=== PATIENT | male | born 1940 | race Native Hawaiian/Other Pacific Islander ===

== ENCOUNTER 2018-03-03 06:24 | Inpatient (IN) | payer MEDICARE ==
[2018-03-03 06:29] VITALS: BMI 23.6
--- NOTE | 2018-03-03 06:41 | C.PDOC ---
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 Went to him, and had a hard time waking him up. When medics arrived, pt was confused. No trauma. Slow to re spond. Staring into space, but easily redirected/. Pt has a history of a stroke/bleed 2 years ago, with some right sided weakness. Time Seen by Provider: 03/03/18 06:38 History Per: Family History/Exam Limitations: no limitations Onset/Duration Of Symptoms: Hrs Current Symptoms Are (Timing): Still Present Severity: Severe Pain Scale Rating Of: 6 Reports Recently: Seen In ED, Treated By A Physician, Hospitalized Recent travel outside of the [place]: No Additional History Per: Family Past Medical History Reviewed: Historical Data, Nursing Documentation, Vital Signs - [facility] Procedures COLONOSCOPY (08/10/01) ESOPHAGOGASTRODUODENOSCOPY [EGD] W/CLOSED BIOPSY (08/10/01) Family History: States: No Known Family Hx Review Of Systems Review Of Systems: ROS cannot be obtained secondary to pt's inabilty to answer questions. (confused) Physical Exam - Physical Exam Appears: Non-toxic Skin: Warm, Dry Head: Normacephalic Eye(s): bilateral: Normal Inspection Oral Mucosa: Moist Tongue: Normal Appearing Neck: Trachea Midline, Supple Chest: Symmetrical Cardiovascular: Rhythm Regular Respiratory: No Rales, No Rhonchi, No Wheezing Gastrointestinal/Abdominal: Soft, No Tenderness, No Distention Back: Normal Inspection Extremity: Normal ROM, No Tenderness Extremity: Bilateral: Atraumatic, Normal Color And Temperature, Normal ROM Pulses: Left Dorsalis Pedis: Normal, Right Dorsalis Pedis: Normal Neurological/Psych: Slow To Respond With Command Gait: Unable To Assess ED Course And Treatment - Laboratory Results Result Diagrams: 03/03/18 06:39 03/03/18 06:39 Critical Care Time - Critical Care Note Total Time (in mins): 30 Documented critical care: time excludes all time spent performing seperately billable procedures. NIHSS Stroke Scale - Date/Time Evaluation Performed Date Performed: 03/03/18 Time Performed: 06:25 When Was NIHSS Performed: Baseline - How Severe is the Stroke Level of Consciousness: 0=Alert LOC to Questions: 0=Both comments correct LOC to commands: 0=Obeys both correctly Best Gaze: 0=Normal Visual: 0=No visual loss Facial: 0=Normal Motor Arm - Left: 0=No drift Motor Arm - Right: 0=No drift Motor Leg - Left: 0=No drift Motor Leg - Right: 1=Drift before 5 sec Limb Ataxia: 0=Absent Sensory: 0=Normal Best Language: 0=No aphasia Dysarthia: 1=Mild to moderate slurring Extinction & Inattention (Neglect): 0=Normal, no object Score: 2 Disposition Counseled Patient/Family Regarding: Studies Performed, Diagnosis - Disposition Disposition Time: 06:38 Condition: GUARDED - Clinical Impression Clinical Impression: Change in mental status Physician Patient Turnover Patient Signed Over To: Soledad Galindo Handoff Comments: pending labs, ct/cta results and disposition
[2018-03-03 06:43] LABS: BASO # 0.1 K/uL (0.0-0.2); BASO % 1.3 % (0.0-2.0); EOS # 0.3 K/uL (0.0-0.7); EOS % 5.2 % (0.0-4.0); HEMOGLOBIN 13.9 g/dL (12.0-18.0); LYMPH % 33.2 % (20.0-40.0); MEAN CELL VOLUME 90.3 fL (80.0-94.0); MEAN CORPUSCULAR HEMOGLOBIN 30.8 pg (27.0-31.0); MEAN CORPUSCULAR HGB CONC 34.1 g/dL (33.0-37.0); MEAN PLATELET VOLUME 7.9 fL (7.2-11.7); MONO # 0.8 K/uL (0.0-0.8); MONO % 13.1 % (0.0-10.0); NEUT # 2.9 K/uL (1.8-7.0); NEUT % 47.2 % (50.0-75.0); NRBC % 0.1 % (0.0-2.0); RBC 4.51 Mil/uL (4.40-5.90); WHITE BLOOD COUNT 6.1 K/uL (4.8-10.8)
[2018-03-03] MEDS ORDERED: Iodixanol 320 MG/ML 100 ML BOTTLE IV ONE (06:47)
[2018-03-03 06:53] LABS: INR 1.1; PROTHROMBIN TIME 12.2 SECONDS (9.7-12.2)
[2018-03-03 06:57] LABS: ALB/GLOB RATIO 1.3 (1.0-2.1); ALBUMIN 4.4 g/dL (3.5-5.0)
[2018-03-03 07:11] LABS: TROPONIN I 0.016 ng/mL (0.00-0.120)
[2018-03-03 08:10] LABS: URINE BILIRUBIN NEGATIVE (NEGATIVE); URINE BLOOD 1+ (NEGATIVE); URINE CLARITY Clear (Clear); URINE COLOR Straw (YELLOW); URINE GLUCOSE (UA) 1+ mg/dL (Normal); URINE LEUKOCYTE ESTERASE NEG Leu/uL (Negative); URINE PROTEIN 2+ mg/dL (NEGATIVE); URINE UROBILINOGEN NORMAL mg/dL (0.2-1.0)
[2018-03-03] MEDS ORDERED: Labetalol 25mg/5ml Syringe IVP STA (08:56)
--- NOTE | 2018-03-03 08:56 | RAD ---
Date of service: 03/03/2018 HISTORY: Code Stroke COMPARISON: No prior. FINDINGS: LUNGS: Diffuse increased interstitial lung markings. Right hilar prominence. Patchy consolidative opacities in the right infrahilar region and left lung base. Upper lobe granulomatous changes. PLEURA: No significant pleural effusion identified, no pneumothorax apparent. CARDIOVASCULAR: Aortic atherosclerotic calcification present. Cardiomegaly. Enlarged ectatic aorta. OSSEOUS STRUCTURES: No significant abnormalities. VISUALIZED UPPER ABDOMEN: Normal. OTHER FINDINGS: None. IMPRESSION: Diffuse increased interstitial lung markings. Right hilar prominence. Patchy consolidative opacities in the right infrahilar region and left lung base. Upper lobe granulomatous changes. Cardiomegaly.
[2018-03-03] MEDS ORDERED: Labetalol 5mg/ml (4ml) ONE (09:00)
--- NOTE | 2018-03-03 09:09 | CP.PCM.CON ---
<Nay Vyas - Last Filed: 03/03/18 17:50> History of Present Illness - History of Present Illness History of Present Illness: Neurology Consult Note This is a 77 year old [place] male with PMHx of Hypertension, Type 2 DM (on oral medications), Hyperlipidemia, Hx of Ischemic CVA, Hx of Hemorrhagic CVA who was referred to our service by ED physician, Dr. Stubbs, after the patient presented to the ED for slurred speech and AMS. History retrieved from the patient's who was present at bedside. As per the , this morning around 5 am she heard him moaning and grunting in the living room (where the patient sleeps). She reports he was moving his jaw in weird manner and his speech was garbled. At the time she called EMS, she reported he had generalized weakness and assisted into the ambulance. She reports the patient has been confused and repeating himself since this morning. Within an hour of examining the patient, the patient reported he is having bilateral blurry vision worse on the right. Up until this point patient had normal vision (does not wear glasses). He denied any black spots, white spots, or the sensation of a black curtain falling down. PMHx: As noted above PSHx: Denied Meds: As per MAR All: NKDA SHx: Denied tobacco, alcohol, or illicit drug use FHx: Unremarkable Review of Systems - Review of Systems Systems not reviewed;Unavailable: Altered Mental Status - Constitutional Constitutional: absent: Fatigue, Fever, Lethargy, Weight Gain, Weight Loss - EENT Eyes: Blurred Vision, Change in Vision, Loss of Peripheral Vision, Tunnel Vision. absent: Diplopia, Exophthalmos, Floaters, Pain, Photophobia, Requires Corrective Lenses, Sees Flashes, Spots in Vision Nose/Mouth/Throat: absent: Nasal Congestion, Nasal Discharge, Dry Mouth, Dysphagia, Sore Throat - Cardiovascular Cardiovascular: absent: Chest Pain, Dyspnea, Edema, Pain Radiating to Arm/Neck/Jaw - Respiratory Respiratory: absent: Cough, Dyspnea on Exertion, Wheezing - Gastrointestinal Gastrointestinal: absent: Abdominal Pain, Nausea, Vomiting - Genitourinary Genitourinary: absent: Hematuria, Urinary Incontinence - Musculoskeletal Musculoskeletal: Muscle Weakness. absent: Abnormal Gait, Back Pain, Myalgias, Numbness - Neurological Neurological: Abnormal Speech, Confusion, Dizziness, Weakness. absent: Numbness, Headaches, Tingling, Tremor, Vertigo - Psychiatric Psychiatric: absent: Anxiety, Depression - Endocrine Endocrine: absent: Polydipsia, Polyphagia, Polyuria - Hematologic/Lymphatic Hematologic: absent: Easy Bleeding, Easy Bruising Past Patient History - Past Social History Smoking Status: Never Smoked - CARDIAC Hx Hypertension: Yes - NEUROLOGICAL HX Cerebrovascular Accident: Yes (Hx of stroke 2 yrs ago) - ENDOCRINE/METABOLIC Hx Endocrine Disorders: Yes Hx Diabetes Mellitus Type 2: Yes - PSYCHIATRIC Hx Substance Use: No - SURGICAL HISTORY Hx Surgeries: No - ANESTHESIA Hx Anesthesia: No Meds Allergies/Adverse Reactions: Allergies Allergy/AdvReac Type Severity Reaction Status Date / Time No Known Allergies Allergy Verified 03/03/18 06:40 Physical Exam - Constitutional Appears: Confused - Head Exam Head Exam: ATRAUMATIC, NORMAL INSPECTION, NORMOCEPHALIC - Eye Exam Eye Exam: PERRL - ENT Exam ENT Exam: Mucous Membranes Dry - Neck Exam Neck exam: Positive for: Normal Inspection - Respiratory Exam Respiratory Exam: Clear to Auscultation Bilateral - Cardiovascular Exam Cardiovascular Exam: +S1, +S2. absent: Diastolic murmur, Systolic Murmur - GI/Abdominal Exam GI & Abdominal Exam: Normal Bowel Sounds, Soft. absent: Distended, Tenderness - Extremities Exam Extremities exam: Positive for: normal inspection, pedal pulses present. Negative for: pedal edema, tenderness - Back Exam Back exam: NORMAL INSPECTION - Neurological Exam Neurological exam: Altered, CN II-XII Intact, Reflexes Normal - Expanded Neurological Exam Expanded Patient oriented to: person, time Speech: Fluid Speech Cerebellar Function: Finger to Nose: Abnormal Left, Abnormal Right, Heel to Hernandez: Abnormal Right Upper motor neuron: Pronator Drift: Normal Sensory exam: Lower Extremity Light Touch: Normal, Upper Extremity Light Touch: Normal Neuro motor strength exam: Left Upper Extremity: 5, Right Upper Extremity: 5, Left Lower Extremity: 5, Right Lower Extremity: 5 DTR: Bicep Left: 2+, Bicep Right: 2+, Patellar Left: 2+, Patellar Right: 2+ - Skin Skin Exam: Dry, Intact, Normal Color, Warm Results - Vital Signs Recent Vital Signs: Last Vital Signs Temp 98.3 F 03/03/18 06:28 Pulse 69 03/03/18 09:01 Resp 18 03/03/18 09:01 BP 170/79 H 03/03/18 09:01 Pulse Ox 98 03/03/18 09:01 - Labs Result Diagrams: 03/03/18 06:39 03/03/18 06:39 Labs: Laboratory Results - last 24 hr 03/03/18 03/03/18 03/03/18 06:27 06:39 06:39 WBC 6.1 RBC 4.51 Hgb 13.9 Hct 40.7 MCV 90.3 MCH 30.8 MCHC 34.1 RDW 14.0 Plt Count 161 MPV 7.9 Neut % (Auto) 47.2 L Lymph % (Auto) 33.2 [place] % (Auto) 13.1 H Eos % (Auto) 5.2 H Baso % (Auto) 1.3 Neut # (Auto) 2.9 Lymph # (Auto) 2.0 [place] # (Auto) 0.8 Eos # (Auto) 0.3 Baso # (Auto) 0.1 PT 12.2 INR 1.1 APTT 33 Sodium Potassium Chloride Carbon Dioxide Anion Gap BUN Creatinine Est GFR ( Amer) Est GFR (Non-Af Amer) POC Glucose (mg/dL) 171 H Random Glucose Hemoglobin A1c Calcium Total Bilirubin AST ALT Alkaline Phosphatase Troponin I Total Protein Albumin Globulin Albumin/Globulin Ratio Triglycerides Cholesterol LDL Cholesterol Direct HDL Cholesterol Urine Color Urine Clarity Urine pH Ur Specific [place] Urine Protein Urine Glucose (UA) Urine Ketones Urine Blood Urine Nitrate Urine Bilirubin Urine Urobilinogen Ur Leukocyte Esterase Urine WBC (Auto) Urine RBC (Auto) B-Hydroxybutyrate Blood Type Antibody Screen 03/03/18 03/03/18 03/03/18 06:39 06:39 06:39 WBC RBC Hgb Hct MCV MCH MCHC RDW Plt Count MPV Neut % (Auto) Lymph % (Auto) [place] % (Auto) Eos % (Auto) Baso % (Auto) Neut # (Auto) Lymph # (Auto) [place] # (Auto) Eos # (Auto) Baso # (Auto) PT INR APTT Sodium 143 Potassium 3.2 L Chloride 107 Carbon Dioxide 26 Anion Gap 14 BUN 30 H Creatinine 1.4 Est GFR ( Amer) 60 Est GFR (Non-Af Amer) 49 POC Glucose (mg/dL) Random Glucose 176 H Hemoglobin A1c 7.8 H Calcium 9.0 Total Bilirubin 0.8 AST 32 ALT 26 Alkaline Phosphatase 70 Troponin I 0.0160 Total Protein 7.8 Albumin 4.4 Globulin 3.4 Albumin/Globulin Ratio 1.3 Triglycerides 120 Cholesterol 126 LDL Cholesterol Direct 72 HDL Cholesterol 41 Urine Color Urine Clarity Urine pH Ur Specific [place] Urine Protein Urine Glucose (UA) Urine Ketones Urine Blood Urine Nitrate Urine Bilirubin Urine Urobilinogen Ur Leukocyte Esterase Urine WBC (Auto) Urine RBC (Auto) B-Hydroxybutyrate Blood Type B POSITIVE Antibody Screen Negative 03/03/18 03/03/18 03/03/18 07:06 07:12 07:38 WBC RBC Hgb Hct MCV MCH MCHC RDW Plt Count MPV Neut % (Auto) Lymph % (Auto) [place] % (Auto) Eos % (Auto) Baso % (Auto) Neut # (Auto) Lymph # (Auto) [place] # (Auto) Eos # (Auto) Baso # (Auto) PT INR APTT Sodium Potassium Chloride Carbon Dioxide Anion Gap BUN Creatinine Est GFR ( Amer) Est GFR (Non-Af Amer) POC Glucose (mg/dL) 165 H Random Glucose Hemoglobin A1c Calcium Total Bilirubin AST ALT Alkaline Phosphatase Troponin I Total Protein Albumin Globulin Albumin/Globulin Ratio Triglycerides Cholesterol LDL Cholesterol Direct HDL Cholesterol Urine Color Straw Urine Clarity Clear Urine pH 6.0 Ur Specific [place] 1.036 H Urine Protein 2+ H Urine Glucose (UA) 1+ H Urine Ketones Negative Urine Blood 1+ H Urine Nitrate Negative Urine Bilirubin Negative Urine Urobilinogen Normal Ur Leukocyte Esterase Neg Urine WBC (Auto) 1 Urine RBC (Auto) 6 H B-Hydroxybutyrate 0.09 Blood Type Antibody Screen Assessment & Plan - Assessment and Plan (Free Text) Plan: 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 Chronic bifrontal infarcts with mild chronic white matter and basal nuclei ischemic changes. Note that the possibility of a small hyperacute infarct not excluded. - Head/ Neck CTA: Minor atherosclerotic plaque both carotid bifurcations with no evidence of occlusion or significant stenosis. Mild to moderate atherosclerotic plaque changes both carotid siphons resulting in moderate stenosis bilaterally. 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 - Brain MRI without contrast: ordered, pending results Management: - Telemetry - Brain MRI without contrast, EEG, ECHO with bubble study - ASA, Plavix, high dose statin - NS @ 100cc/hr - Allow permissive hypertension, only treat BP that is higher than 220/110mmhg until 24 hours after admission - PT/OT, Case Management Case discussed with Nay Peña DO, PGY2 NIHSS Stroke Scale - Date/Time Evaluation Performed Date Performed: 03/03/18 Time Performed: 07:23 - How Severe is the Stoke Level of Consciousness: 0=Alert LOC to Questions: 1=One correct LOC to commands: 1=Obeys one correctly Best Gaze: 0=Normal Visual: 1=Partial hemianopia Facial: 0=Normal Motor Arm - Left: 0=No drift Motor Arm - Right: 0=No drift Motor Leg - Left: 1=Drift before 5 sec Motor Leg - Right: 0=No drift Limb Ataxia: 0=Absent Sensory: 0=Normal Best Language: 0=No aphasia Dysarthia: 1=Mild to moderate slurring Extinction & Inattention (Neglect): 0=Normal, no object Score: 5 <Qamar Hernandez - Last Filed: 03/03/18 18:48> Meds - Medications Medications: Current Medications Allopurinol (Zyloprim) 100 mg PO DAILY [facility] Aspirin (Aspirin Chewable) 81 mg PO DAILY [facility] Clopidogrel Bisulfate (Plavix) 75 mg PO DAILY [facility] Enoxaparin Sodium (Lovenox) 40 mg SC DAILY [facility] Famotidine (Pepcid) 20 mg PO DAILY [facility] Glipizide (Glucotrol Xl) 10 mg PO DAILY [facility] Sodium Chloride (Sodium Chloride 0.9%) 1,000 mls @ 100 mls/hr IV .Q10H [facility] Stop: 03/04/18 12:14 Last Admin: 03/03/18 17:09 Dose: 100 mls/hr Pioglitazone HCl (Actos) 15 mg PO DAILY [facility] Rosuvastatin Calcium (Crestor) 10 mg PO HS [facility] Results - Vital Signs Recent Vital Signs: Last Vital Signs Temp 98.0 F 03/03/18 15:00 Pulse 59 L 03/03/18 15:00 Resp 20 03/03/18 15:00 BP 197/66 H 03/03/18 15:00 Pulse Ox 98 03/03/18 15:00 - Labs Result Diagrams: 03/03/18 06:39 03/03/18 06:39 Labs: Laboratory Results - last 24 hr 03/03/18 03/03/18 03/03/18 06:27 06:39 06:39 WBC 6.1 RBC 4.51 Hgb 13.9 Hct 40.7 MCV 90.3 MCH 30.8 MCHC 34.1 RDW 14.0 Plt Count 161 MPV 7.9 Neut % (Auto) 47.2 L Lymph % (Auto) 33.2 [place] % (Auto) 13.1 H Eos % (Auto) 5.2 H Baso % (Auto) 1.3 Neut # (Auto) 2.9 Lymph # (Auto) 2.0 [place] # (Auto) 0.8 Eos # (Auto) 0.3 Baso # (Auto) 0.1 PT 12.2 INR 1.1 APTT 33 Sodium Potassium Chloride Carbon Dioxide Anion Gap BUN Creatinine Est GFR ( Amer) Est GFR (Non-Af Amer) POC Glucose (mg/dL) 171 H Random Glucose Hemoglobin A1c Calcium Total Bilirubin AST ALT Alkaline Phosphatase Troponin I Total Protein Albumin Globulin Albumin/Globulin Ratio Triglycerides Cholesterol LDL Cholesterol Direct HDL Cholesterol 25-OH Vitamin D Total Folate Homocysteine Urine Color Urine Clarity Urine pH Ur Specific [place] Urine Protein Urine Glucose (UA) Urine Ketones Urine Blood Urine Nitrate Urine Bilirubin Urine Urobilinogen Ur Leukocyte Esterase Urine WBC (Auto) Urine RBC (Auto) B-Hydroxybutyrate Blood Type Antibody Screen 03/03/18 03/03/18 03/03/18 06:39 06:39 06:39 WBC RBC Hgb Hct MCV MCH MCHC RDW Plt Count MPV Neut % (Auto) Lymph % (Auto) [place] % (Auto) Eos % (Auto) Baso % (Auto) Neut # (Auto) Lymph # (Auto) [place] # (Auto) Eos # (Auto) Baso # (Auto) PT INR APTT Sodium 143 Potassium 3.2 L Chloride 107 Carbon Dioxide 26 Anion Gap 14 BUN 30 H Creatinine 1.4 Est GFR ( Amer) 60 Est GFR (Non-Af Amer) 49 POC Glucose (mg/dL) Random Glucose 176 H Hemoglobin A1c 7.8 H Calcium 9.0 Total Bilirubin 0.8 AST 32 ALT 26 Alkaline Phosphatase 70 Troponin I 0.0160 Total Protein 7.8 Albumin 4.4 Globulin 3.4 Albumin/Globulin Ratio 1.3 Triglycerides 120 Cholesterol 126 LDL Cholesterol Direct 72 HDL Cholesterol 41 25-OH Vitamin D Total Folate Homocysteine Urine Color Urine Clarity Urine pH Ur Specific [place] Urine Protein Urine Glucose (UA) Urine Ketones Urine Blood Urine Nitrate Urine Bilirubin Urine Urobilinogen Ur Leukocyte Esterase Urine WBC (Auto) Urine RBC (Auto) B-Hydroxybutyrate Blood Type B POSITIVE Antibody Screen Negative 03/03/18 03/03/18 03/03/18 07:06 07:12 07:38 WBC RBC Hgb Hct MCV MCH MCHC RDW Plt Count MPV Neut % (Auto) Lymph % (Auto) [place] % (Auto) Eos % (Auto) Baso % (Auto) Neut # (Auto) Lymph # (Auto) [place] # (Auto) Eos # (Auto) Baso # (Auto) PT INR APTT Sodium Potassium Chloride Carbon Dioxide Anion Gap BUN Creatinine Est GFR ( Amer) Est GFR (Non-Af Amer) POC Glucose (mg/dL) 165 H Random Glucose Hemoglobin A1c Calcium Total Bilirubin AST ALT Alkaline Phosphatase Troponin I Total Protein Albumin Globulin Albumin/Globulin Ratio Triglycerides Cholesterol LDL Cholesterol Direct HDL Cholesterol 25-OH Vitamin D Total Folate Homocysteine Urine Color Straw Urine Clarity Clear Urine pH 6.0 Ur Specific [place] 1.036 H Urine Protein 2+ H Urine Glucose (UA) 1+ H Urine Ketones Negative Urine Blood 1+ H Urine Nitrate Negative Urine Bilirubin Negative Urine Urobilinogen Normal Ur Leukocyte Esterase Neg Urine WBC (Auto) 1 Urine RBC (Auto) 6 H B-Hydroxybutyrate 0.09 Blood Type Antibody Screen 03/03/18 03/03/18 03/03/18 14:04 14:04 16:30 WBC RBC Hgb Hct MCV MCH MCHC RDW Plt Count MPV Neut % (Auto) Lymph % (Auto) [place] % (Auto) Eos % (Auto) Baso % (Auto) Neut # (Auto) Lymph # (Auto) [place] # (Auto) Eos # (Auto) Baso # (Auto) PT INR APTT Sodium Potassium Chloride Carbon Dioxide Anion Gap BUN Creatinine Est GFR ( Amer) Est GFR (Non-Af Amer) POC Glucose (mg/dL) 191 H Random Glucose Hemoglobin A1c Calcium Total Bilirubin AST ALT Alkaline Phosphatase Troponin I Total Protein Albumin Globulin Albumin/Globulin Ratio Triglycerides Cholesterol LDL Cholesterol Direct HDL Cholesterol 25-OH Vitamin D Total 35.4 Folate > 20.0 Homocysteine 8.8 Urine Color Urine Clarity Urine pH Ur Specific [place] Urine Protein Urine Glucose (UA) Urine Ketones Urine Blood Urine Nitrate Urine Bilirubin Urine Urobilinogen Ur Leukocyte Esterase Urine WBC (Auto) Urine RBC (Auto) B-Hydroxybutyrate Blood Type Antibody Screen Attending/Attestation - Attestation I have personally seen and examined this patient.: Yes I have fully participated in the care of the patient.: Yes I have reviewed all pertinent clinical information: Yes Notes (Text): 03/03/18 18:48 I agree with the assessment and plan. 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 We will continue work up and treatment as outlined: - Telemetry - Brain MRI without contrast, EEG, ECHO with bubble study - ASA, Plavix, high dose statin - NS @ 100cc/hr - Allow permissive hypertension, only treat BP that is higher than 220/110mmhg until 24 hours after admission - PT/OT, Case Management
--- NOTE | 2018-03-03 10:00 | CT ---
Date of service: 03/03/2018 PROCEDURE: CT HEAD WITHOUT CONTRAST. HISTORY: Code Stroke COMPARISON: Correlation made with concurrent CTA brain TECHNIQUE: Axial computed tomography images were obtained through the head/brain without intravenous contrast. Radiation dose: Total exam DLP = 1233.69 mGy-cm. This CT exam was performed using one or more of the following dose reduction techniques: Automated exposure control, adjustment of the mA and/or kV according to patient size, and/or use of iterative reconstruction technique. FINDINGS: HEMORRHAGE: No acute parenchymal, subarachnoid or extra-axial hemorrhage. BRAIN: Old left anterior superior frontal and right mid to superior mid frontal chronic infarct changes. In addition, there are mild diffuse/confluent chronic periventricular white matter ischemic changes some extension into the white matter tracts of both basal nuclei. Note that the possibility of a small hyperacute infarct not excluded. Moderate generalized volume loss. Minor vascular calcifications both carotid siphons VENTRICLES: No obstructive hydrocephalus. CALVARIUM: Calvarium intact PARANASAL SINUSES: Unremarkable as visualized. No sig minor mucosal thickening left maxillary sinus with minimal mucosal thickening few ethmoid air cells spacing superiorly into the inferior aspect of the frontal sinus. The. MASTOID AIR CELLS: Unremarkable as visualized. No inflammatory changes. OTHER FINDINGS: None. IMPRESSION: No acute intracranial hemorrhage. Chronic bifrontal infarcts with mild chronic white matter and basal nuclei ischemic changes. Note that the possibility of a small hyperacute infarct not excluded. Moderate generalized volume loss.
--- NOTE | 2018-03-03 10:20 | CT ---
Date of service: 03/03/2018 PROCEDURE: CT Angiography of the neck and brain 03/03/2018 HISTORY: Mental status change. COMPARISON: None. TECHNIQUE: Contiguous axial images of the neck were obtained from the level of the vertex of the skull to the superior mediastinum in the arteriographic phase of enhancement. Coronal and sagittal reformats or also generated. IV contrast dose: Radiation dose: Total exam DLP = 563.67 mGy-cm. This CT exam was performed using one or more of the following dose reduction techniques: Automated exposure control, adjustment of the mA and/or kV according to patient size, and/or use of iterative reconstruction technique. FINDINGS: CAROTID ARTERIES: There is moderate partially calcified atherosclerotic plaque changes seen along the transverse portion of the aortic arch with slight calcification at the origin of the left subclavian artery. Right Carotid Arteries Minor partially calcified atherosclerotic plaque changes seen along the distal common carotid arteries, carotid bifurcations however no evidence of occlusion or significant stenosis. The distal internal carotid arteries including the petrous cavernous and supraclinoid segments are patent VERTEBRAL ARTERIES: There is asymmetry of the vertebral arteries right-sided which is larger in caliber/more dominant than the left side. Basilar artery is patent. OTHER FINDINGS: The visualized major branches of the [place] patent. The distal anterior middle and posterior cerebral arteries are also patent and relatively symmetric. No evidence of large aneurysm nor vascular malformation. Patchy infiltrate changes present in the left lung apex. Mild passive/dependent type atelectasis. Mild-moderate multilevel degenerative spondylosis of the cervical spine with apparent multilevel canal narrowing from the C3 through the C5-C6 levels.. IMPRESSION: Minor atherosclerotic plaque both carotid bifurcations with no evidence of occlusion or significant stenosis. Mild to moderate atherosclerotic plaque changes both carotid siphons resulting in moderate stenosis bilaterally. Patchy infiltrate changes seen in the left lung apex.
[2018-03-03 15:46] LABS: FOLATE > 20.0 ng/mL
--- NOTE | 2018-03-03 15:50 | CT ---
Date of service: 03/03/2018 PROCEDURE: CT HEAD WITHOUT CONTRAST. HISTORY: new onset Bitemporal hemianopsia COMPARISON: Noncontrast head CT performed 03/03/18 at 639 hr TECHNIQUE: Axial computed tomography images were obtained through the head/brain without intravenous contrast. Radiation dose: Total exam DLP = 1262.23 mGy-cm. This CT exam was performed using one or more of the following dose reduction techniques: Automated exposure control, adjustment of the mA and/or kV according to patient size, and/or use of iterative reconstruction technique. FINDINGS: HEMORRHAGE: No intracranial hemorrhage. BRAIN: Diffuse atrophy with prominence of the ventricles and sulci noted. No mass effect or edema. Intracranial atherosclerosis. Evidence of acute left LOCK TENDER territory infarction with hypodense regions involving the left posterior temporal lobe, left infra medial occipital lobe, and left posterior thalamus. Re-identified left anterior superior frontal and right mid frontal encephalomalacia. Scattered periventricular and subcortical white matter hypodensities, which are nonspecific, but often seen with chronic microvascular ischemic disease. Please note that MRI with diffusion imaging is more sensitive in the detection of acute ischemic event. VENTRICLES: No hydrocephalus. CALVARIUM: Unremarkable. PARANASAL SINUSES: Mucosal thickening of the ethmoid air cells, frontal, and sphenoid sinuses. MASTOID AIR CELLS: Unremarkable as visualized. No inflammatory changes. OTHER FINDINGS: None. IMPRESSION: Interval development of hypodense regions involving the left posterior temporal lobe, left infra medial occipital lobe, and left posterior thalamus consistent with acute left LOCK TENDER territory infarction. Additional findings as above. Findings discussed with Dr. Monroe on 03/03/18 at 3:37 p.m.
--- NOTE | 2018-03-03 16:43 | CP.PCM.HP ---
Present on Admission - Present on Admission Any Indicators Present on Admission: No Past Patient History - Past Social History Smoking Status: Never Smoked - CARDIAC Hx Hypertension: Yes - NEUROLOGICAL HX Cerebrovascular Accident: Yes (Hx of stroke 2 yrs ago) - ENDOCRINE/METABOLIC Hx Endocrine Disorders: Yes Hx Diabetes Mellitus Type 2: Yes - PSYCHIATRIC Hx Substance Use: No - SURGICAL HISTORY Hx Surgeries: No - ANESTHESIA Hx Anesthesia: No Meds Allergies/Adverse Reactions: Allergies Allergy/AdvReac Type Severity Reaction Status Date / Time No Known Allergies Allergy Verified 03/03/18 06:40 Physical Exam - Constitutional Appears: Well - Head Exam Head Exam: ATRAUMATIC, NORMAL INSPECTION, NORMOCEPHALIC - Eye Exam Eye Exam: EOMI, Normal appearance, PERRL Pupil Exam: NORMAL ACCOMODATION, PERRL - ENT Exam ENT Exam: Mucous Membranes Moist, Normal Exam - Neck Exam Neck exam: Positive for: Normal Inspection - Respiratory Exam Respiratory Exam: Decreased Breath Sounds - Cardiovascular Exam Cardiovascular Exam: REGULAR RHYTHM, +S1, +S2 - GI/Abdominal Exam GI & Abdominal Exam: Diminished Bowel Sounds, Soft - Rectal Exam Rectal Exam: Deferred Results - Vital Signs Recent Vital Signs: Last Vital Signs Temp 98.0 F 03/03/18 15:00 Pulse 59 L 03/03/18 15:00 Resp 20 03/03/18 15:00 BP 197/66 H 03/03/18 15:00 Pulse Ox 98 03/03/18 15:00 - Labs Result Diagrams: 03/03/18 06:39 03/03/18 06:39 Labs: Laboratory Results - last 24 hr 03/03/18 03/03/18 03/03/18 06:27 06:39 06:39 WBC 6.1 RBC 4.51 Hgb 13.9 Hct 40.7 MCV 90.3 MCH 30.8 MCHC 34.1 RDW 14.0 Plt Count 161 MPV 7.9 Neut % (Auto) 47.2 L Lymph % (Auto) 33.2 [place] % (Auto) 13.1 H Eos % (Auto) 5.2 H Baso % (Auto) 1.3 Neut # (Auto) 2.9 Lymph # (Auto) 2.0 [place] # (Auto) 0.8 Eos # (Auto) 0.3 Baso # (Auto) 0.1 PT 12.2 INR 1.1 APTT 33 Sodium Potassium Chloride Carbon Dioxide Anion Gap BUN Creatinine Est GFR ( Amer) Est GFR (Non-Af Amer) POC Glucose (mg/dL) 171 H Random Glucose Hemoglobin A1c Calcium Total Bilirubin AST ALT Alkaline Phosphatase Troponin I Total Protein Albumin Globulin Albumin/Globulin Ratio Triglycerides Cholesterol LDL Cholesterol Direct HDL Cholesterol 25-OH Vitamin D Total Folate Homocysteine Urine Color Urine Clarity Urine pH Ur Specific [place] Urine Protein Urine Glucose (UA) Urine Ketones Urine Blood Urine Nitrate Urine Bilirubin Urine Urobilinogen Ur Leukocyte Esterase Urine WBC (Auto) Urine RBC (Auto) B-Hydroxybutyrate Blood Type Antibody Screen 03/03/18 03/03/18 03/03/18 06:39 06:39 06:39 WBC RBC Hgb Hct MCV MCH MCHC RDW Plt Count MPV Neut % (Auto) Lymph % (Auto) [place] % (Auto) Eos % (Auto) Baso % (Auto) Neut # (Auto) Lymph # (Auto) [place] # (Auto) Eos # (Auto) Baso # (Auto) PT INR APTT Sodium 143 Potassium 3.2 L Chloride 107 Carbon Dioxide 26 Anion Gap 14 BUN 30 H Creatinine 1.4 Est GFR ( Amer) 60 Est GFR (Non-Af Amer) 49 POC Glucose (mg/dL) Random Glucose 176 H Hemoglobin A1c 7.8 H Calcium 9.0 Total Bilirubin 0.8 AST 32 ALT 26 Alkaline Phosphatase 70 Troponin I 0.0160 Total Protein 7.8 Albumin 4.4 Globulin 3.4 Albumin/Globulin Ratio 1.3 Triglycerides 120 Cholesterol 126 LDL Cholesterol Direct 72 HDL Cholesterol 41 25-OH Vitamin D Total Folate Homocysteine Urine Color Urine Clarity Urine pH Ur Specific [place] Urine Protein Urine Glucose (UA) Urine Ketones Urine Blood Urine Nitrate Urine Bilirubin Urine Urobilinogen Ur Leukocyte Esterase Urine WBC (Auto) Urine RBC (Auto) B-Hydroxybutyrate Blood Type B POSITIVE Antibody Screen Negative 03/03/18 03/03/18 03/03/18 07:06 07:12 07:38 WBC RBC Hgb Hct MCV MCH MCHC RDW Plt Count MPV Neut % (Auto) Lymph % (Auto) [place] % (Auto) Eos % (Auto) Baso % (Auto) Neut # (Auto) Lymph # (Auto) [place] # (Auto) Eos # (Auto) Baso # (Auto) PT INR APTT Sodium Potassium Chloride Carbon Dioxide Anion Gap BUN Creatinine Est GFR ( Amer) Est GFR (Non-Af Amer) POC Glucose (mg/dL) 165 H Random Glucose Hemoglobin A1c Calcium Total Bilirubin AST ALT Alkaline Phosphatase Troponin I Total Protein Albumin Globulin Albumin/Globulin Ratio Triglycerides Cholesterol LDL Cholesterol Direct HDL Cholesterol 25-OH Vitamin D Total Folate Homocysteine Urine Color Straw Urine Clarity Clear Urine pH 6.0 Ur Specific [place] 1.036 H Urine Protein 2+ H Urine Glucose (UA) 1+ H Urine Ketones Negative Urine Blood 1+ H Urine Nitrate Negative Urine Bilirubin Negative Urine Urobilinogen Normal Ur Leukocyte Esterase Neg Urine WBC (Auto) 1 Urine RBC (Auto) 6 H B-Hydroxybutyrate 0.09 Blood Type Antibody Screen 03/03/18 03/03/18 03/03/18 14:04 14:04 16:30 WBC RBC Hgb Hct MCV MCH MCHC RDW Plt Count MPV Neut % (Auto) Lymph % (Auto) [place] % (Auto) Eos % (Auto) Baso % (Auto) Neut # (Auto) Lymph # (Auto) [place] # (Auto) Eos # (Auto) Baso # (Auto) PT INR APTT Sodium Potassium Chloride Carbon Dioxide Anion Gap BUN Creatinine Est GFR ( Amer) Est GFR (Non-Af Amer) POC Glucose (mg/dL) 191 H Random Glucose Hemoglobin A1c Calcium Total Bilirubin AST ALT Alkaline Phosphatase Troponin I Total Protein Albumin Globulin Albumin/Globulin Ratio Triglycerides Cholesterol LDL Cholesterol Direct HDL Cholesterol 25-OH Vitamin D Total 35.4 Folate > 20.0 Homocysteine 8.8 Urine Color Urine Clarity Urine pH Ur Specific [place] Urine Protein Urine Glucose (UA) Urine Ketones Urine Blood Urine Nitrate Urine Bilirubin Urine Urobilinogen Ur Leukocyte Esterase Urine WBC (Auto) Urine RBC (Auto) B-Hydroxybutyrate Blood Type Antibody Screen Assessment & Plan - Assessment and Plan (Free Text) Plan: Antidiabetic medicine Aspirin crestor Metoprolol Monitor the vital signs Cardiology consult Blood pressure is high CT scan revealed no acute stroke But reveals a chronic infarct with a mild chronic white matter changes To be discussed with the cardiology and neurology follow-up As ordered
[2018-03-03] MEDS: Sodium Chloride 0.9% 1,000 ML IV SCH (17:09)
[2018-03-03] MEDS ORDERED: Metoprolol Succinate 25 mg XL Tab PO SCH (18:00)
[2018-03-03] MEDS: (Novolog) Insulin Aspart, Recombinant 100 u/ml 10 ml vial SC SCH (21:03)
[2018-03-04] MEDS: Sodium Chloride 0.9% 1,000 ML IV SCH ×2 (02:15→05:00)
[2018-03-04 08:05] LABS: BLOOD UREA NITROGEN 19 mg/dL (9-20); CALCIUM 8.5 mg/dl (8.6-10.4); GFR NON-AFRICAN AMERICAN > 60
[2018-03-04] MEDS: (Novolog) Insulin Aspart, Recombinant 100 u/ml 10 ml vial SC SCH ×4 (08:25→21:42)
--- NOTE | 2018-03-04 10:07 | CP.PCM.PN ---
<Nay Vyas - Last Filed: 03/04/18 14:35> Subjective - Date & Time of Evaluation Date of Evaluation: 03/04/18 Time of Evaluation: 09:00 - Subjective Subjective: Neurology Follow Up Note Patient was seen and examined at bedside. Patient reports his vision remains the same. He seems more oriented today. ROS unremarkable. Objective - Vital Signs/Intake and Output Vital Signs (last 24 hours): Temp Pulse Resp BP Pulse Ox 98.8 F 75 20 141/82 95 03/04/18 07:00 03/04/18 07:00 03/04/18 07:00 03/04/18 07:00 03/04/18 07:00 Intake and Output: 03/04/18 03/04/18 06:59 18:59 Intake Total 1590 Output Total 300 Balance 1290 - Medications Medications: Current Medications Allopurinol (Zyloprim) 100 mg PO DAILY [facility] Aspirin (Aspirin Chewable) 81 mg PO DAILY [facility] Clopidogrel Bisulfate (Plavix) 75 mg PO DAILY [facility] Enoxaparin Sodium (Lovenox) 40 mg SC DAILY [facility] Famotidine (Pepcid) 20 mg PO DAILY [facility] Last Admin: 03/03/18 20:02 Dose: 20 mg Glipizide (Glucotrol Xl) 10 mg PO DAILY [facility] Sodium Chloride (Sodium Chloride 0.9%) 1,000 mls @ 100 mls/hr IV .Q10H [facility] Stop: 03/04/18 12:14 Last Admin: 03/04/18 05:00 Dose: 100 mls/hr Insulin Aspart (Novolog) 0 unit SC ACHS [facility]; Protocol Last Admin: 03/04/18 08:25 Dose: Not Given Losartan Potassium (Cozaar) 25 mg PO DAILY [facility] Last Admin: 03/03/18 20:49 Dose: 25 mg Pioglitazone HCl (Actos) 15 mg PO DAILY [facility] Rosuvastatin Calcium (Crestor) 10 mg PO HS [facility] Last Admin: 03/03/18 21:07 Dose: 10 mg - Labs Labs: 03/03/18 06:39 03/04/18 06:46 PT 12.2 SECONDS (9.7-12.2) 03/03/18 06:39 INR 1.1 03/03/18 06:39 APTT 33 SECONDS (21-34) 03/03/18 06:39 - Additional Findings Additional findings: - Constitutional Appears: Alert, - Head Exam Head Exam: ATRAUMATIC, NORMAL INSPECTION, NORMOCEPHALIC - Eye Exam Eye Exam: PERRL - ENT Exam ENT Exam: Mucous Membranes Dry - Neck Exam Neck exam: Positive for: Normal Inspection - Respiratory Exam Respiratory Exam: Clear to Auscultation Bilateral - Cardiovascular Exam Cardiovascular Exam: +S1, +S2. absent: Diastolic murmur, Systolic Murmur - GI/Abdominal Exam GI & Abdominal Exam: Normal Bowel Sounds, Soft. absent: Distended, Tenderness - Extremities Exam Extremities exam: Positive for: normal inspection, pedal pulses present. Negative for: pedal edema, tenderness - Back Exam Back exam: NORMAL INSPECTION - Neurological Exam Neurological exam: Altered, CN II-XII Intact, Reflexes Normal - Expanded Neurological Exam Expanded Patient oriented to: person, time Speech: Fluid Speech Cerebellar Function: Finger to Nose: Abnormal Left, Abnormal Right, Heel to Hernandez: Abnormal Right Upper motor neuron: Pronator Drift: Normal Sensory exam: Lower Extremity Light Touch: Normal, Upper Extremity Light Touch: Normal Neuro motor strength exam: Left Upper Extremity: 5, Right Upper Extremity: 5, Left Lower Extremity: 5, Right Lower Extremity: 5 DTR: Bicep Left: 2+, Bicep Right: 2+, Patellar Left: 2+, Patellar Right: 2+ - Skin Skin Exam: Dry, Intact, Normal Color, Warm Assessment and Plan - Assessment and Plan (Free Text) Plan: Left HOSPITAL RECRU[employer] CVA Right Temporal Hemianopsia Prior History of Ischemic and Hemorrhagic CVA Imaging: - Head CT without contrast: No acute intracranial hemorrhage. Chronic bifrontal infarcts with mild chronic white matter and basal nuclei ischemic changes. Note that the possibility of a small hyperacute infarct not excluded. - Head/ Neck CTA: Minor atherosclerotic plaque both carotid bifurcations with no evidence of occlusion or significant stenosis. Mild to moderate atherosclerotic plaque changes both carotid siphons resulting in moderate stenosis bilaterally. - Repeat Head CT without contrast in light of new vision changes: Interval development of hypodense regions involving the left posterior temporal lobe, left infra medial occipital lobe, and left posterior thalamus consistent with acute left HOSPITAL RECRU[employer] territory infarction. - Brain MRI without contrast: ordered, pending results - EEG: ordered, pending results - Echo with bubble study: ordered, pending results Management: - Telemetry - ASA, Plavix, high dose statin - Okay to start hypertensive medications - Brain MRI without contrast, EEG, ECHO with bubble study ordered - Patient's prior CVAs were most likely ischemic in etiology with hemorrhagic conversion - Therefore, repeat Head CT on day 6 (03/08/18) to monitor if it will convert to hemorrhagic. If there is no hemorrhagic conversion, can start Eliquis 2.5mg PO BID for paroxysmal atrial fibrillation. - PT/OT, Case Management Case discussed with Nay Peña DO, PGY2 <Qamar Hernandez - Last Filed: 03/04/18 17:50> Objective - Vital Signs/Intake and Output Vital Signs (last 24 hours): Temp Pulse Resp BP Pulse Ox 99.4 F 74 20 181/89 H 95 03/04/18 15:00 03/04/18 15:46 03/04/18 15:00 03/04/18 15:00 03/04/18 15:00 Intake and Output: 03/04/18 03/04/18 06:59 18:59 Intake Total 1590 Output Total 300 Balance 1290 - Medications Medications: Current Medications Allopurinol (Zyloprim) 100 mg PO DAILY [facility] Last Admin: 03/04/18 10:50 Dose: 100 mg Aspirin (Aspirin Chewable) 81 mg PO DAILY [facility] Last Admin: 03/04/18 10:50 Dose: 81 mg Clopidogrel Bisulfate (Plavix) 75 mg PO DAILY [facility] Last Admin: 03/04/18 10:50 Dose: 75 mg Enoxaparin Sodium (Lovenox) 40 mg SC DAILY [facility] Last Admin: 03/04/18 10:50 Dose: 40 mg Famotidine (Pepcid) 20 mg PO DAILY [facility] Last Admin: 03/04/18 10:50 Dose: 20 mg Glipizide (Glucotrol Xl) 10 mg PO DAILY [facility] Last Admin: 03/04/18 10:50 Dose: 10 mg Insulin Aspart (Novolog) 0 unit SC [facility]; Protocol Last Admin: 03/04/18 17:46 Dose: 1 unit Losartan Potassium (Cozaar) 25 mg PO DAILY [facility] Last Admin: 03/04/18 10:50 Dose: 25 mg Pioglitazone HCl (Actos) 15 mg PO DAILY [facility] Last Admin: 03/04/18 10:49 Dose: 15 mg Rosuvastatin Calcium (Crestor) 10 mg PO HS [facility] Last Admin: 03/03/18 21:07 Dose: 10 mg - Labs Labs: 03/03/18 06:39 03/04/18 06:46 PT 12.2 SECONDS (9.7-12.2) 03/03/18 06:39 INR 1.1 03/03/18 06:39 APTT 33 SECONDS (21-34) 03/03/18 06:39 Attending/Attestation - Attestation I have personally seen and examined this patient.: Yes I have fully participated in the care of the patient.: Yes I have reviewed all pertinent clinical information, including history, physical exam and plan: Yes Notes (Text): I agree with the assessment and plan. Will repeat CT head on day 6 and if there is no hemorrhagic conversion, will start Eliquis 2.5 mg BID for secondary stroke prevention in the setting of atrial fibrillation.
[2018-03-04] MEDS: GlipiZIDE 10 mg SR Tab PO SCH (10:50)
[2018-03-04] MEDS: Enoxaparin 40 mg Syringe SC SCH (10:50)
--- NOTE | 2018-03-04 11:20 | CP.PCM.CON ---
History of Present Illness - History of Present Illness History of Present Illness: CC: Acute CVA HPI: 77 year old man with cerebrovascular disease, DM, HTN. Presents with severe 1 day onset of confusion and dysarthria. Occurred in the setting of suspicious paroxysmal atrial fibrillation. Improved with time. Currently unable to speak clearly. Review of Systems - Review of Systems All systems: reviewed and no additional remarkable complaints except Past Patient History - Past Medical History & Family History Past Medical History?: Yes - Past Social History Smoking Status: Never Smoked - CARDIAC Hx Hypertension: Yes - PULMONARY Hx Respiratory Disorders: No - NEUROLOGICAL HX Cerebrovascular Accident: Yes (Hx of stroke 2 yrs ago) - HEENT Hx HEENT Problems: Yes Other/Comment: wear reading eyeglasses - RENAL Hx Chronic Kidney Disease: No - ENDOCRINE/METABOLIC Hx Endocrine Disorders: Yes Hx Diabetes Mellitus Type 2: Yes - HEMATOLOGICAL/ONCOLOGICAL Hx Blood Disorders: No - INTEGUMENTARY Hx Dermatological Problems: No - MUSCULOSKELETAL/RHEUMATOLOGICAL Hx Falls: No - GASTROINTESTINAL Hx Gastrointestinal Disorders: No - GENITOURINARY/GYNECOLOGICAL Hx Genitourinary Disorders: No - PSYCHIATRIC Hx Substance Use: No - SURGICAL HISTORY Hx Surgeries: No - ANESTHESIA Hx Anesthesia: No Meds Allergies/Adverse Reactions: Allergies Allergy/AdvReac Type Severity Reaction Status Date / Time No Known Allergies Allergy Verified 03/03/18 06:40 - Medications Medications: Current Medications Allopurinol (Zyloprim) 100 mg PO DAILY [facility] Last Admin: 03/04/18 10:50 Dose: 100 mg Aspirin (Aspirin Chewable) 81 mg PO DAILY [facility] Last Admin: 03/04/18 10:50 Dose: 81 mg Clopidogrel Bisulfate (Plavix) 75 mg PO DAILY [facility] Last Admin: 03/04/18 10:50 Dose: 75 mg Enoxaparin Sodium (Lovenox) 40 mg SC DAILY [facility] Last Admin: 03/04/18 10:50 Dose: 40 mg Famotidine (Pepcid) 20 mg PO DAILY [facility] Last Admin: 03/04/18 10:50 Dose: 20 mg Glipizide (Glucotrol Xl) 10 mg PO DAILY [facility] Last Admin: 03/04/18 10:50 Dose: 10 mg Sodium Chloride (Sodium Chloride 0.9%) 1,000 mls @ 100 mls/hr IV .Q10H [facility] Stop: 03/04/18 12:14 Last Admin: 03/04/18 05:00 Dose: 100 mls/hr Insulin Aspart (Novolog) 0 unit SC ACHS [facility]; Protocol Last Admin: 03/04/18 08:25 Dose: Not Given Losartan Potassium (Cozaar) 25 mg PO DAILY [facility] Last Admin: 03/04/18 10:50 Dose: 25 mg Pioglitazone HCl (Actos) 15 mg PO DAILY [facility] Last Admin: 03/04/18 10:49 Dose: 15 mg Rosuvastatin Calcium (Crestor) 10 mg PO HS [facility] Last Admin: 03/03/18 21:07 Dose: 10 mg Physical Exam - Constitutional Appears: Well, Non-toxic, Confused - Head Exam Head Exam: ATRAUMATIC, NORMAL INSPECTION - Eye Exam Eye Exam: PERRL. absent: Scleral icterus - ENT Exam ENT Exam: Mucous Membranes Dry, Normal External Ear Exam - Neck Exam Neck exam: Positive for: Full Rom. Negative for: Lymphadenopathy, Thyromegaly - Respiratory Exam Respiratory Exam: Clear to Auscultation Bilateral, NORMAL BREATHING PATTERN - Cardiovascular Exam Cardiovascular Exam: REGULAR RHYTHM, RRR, +S1, +S2. absent: JVD - GI/Abdominal Exam GI & Abdominal Exam: Normal Bowel Sounds. absent: Organomegaly - Extremities Exam Extremities exam: Positive for: full ROM. Negative for: pedal edema - Neurological Exam Neurological exam: Oriented x3 Additional comments: Dysarthria word searching is poor Results - Vital Signs Recent Vital Signs: Last Vital Signs Temp 98.8 F 03/04/18 07:00 Pulse 75 03/04/18 07:00 Resp 20 03/04/18 07:00 BP 141/82 03/04/18 07:00 Pulse Ox 95 03/04/18 07:00 - Labs Result Diagrams: 03/03/18 06:39 03/04/18 06:46 Labs: Laboratory Results - last 24 hr 03/03/18 03/03/18 03/03/18 14:04 14:04 16:30 Sodium Potassium Chloride Carbon Dioxide Anion Gap BUN Creatinine Est GFR ( Amer) Est GFR (Non-Af Amer) POC Glucose (mg/dL) 191 H Random Glucose Calcium 25-OH Vitamin D Total 35.4 Folate > 20.0 Homocysteine 8.8 03/03/18 03/04/18 03/04/18 21:00 06:12 06:46 Sodium 138 Potassium 3.6 Chloride 108 H Carbon Dioxide 21 L Anion Gap 13 BUN 19 Creatinine 1.0 Est GFR ( Amer) > 60 Est GFR (Non-Af Amer) > 60 POC Glucose (mg/dL) 164 H 222 H Random Glucose 216 H Calcium 8.5 L 25-OH Vitamin D Total Folate Homocysteine - EKG Data EKG Interpreted by: Myself (Atrial fibrillation) Rate: Normal - Imaging and Cardiology Chest x-ray Additional comment: No infiltrates or effusions 2D echo Status: Image reviewed by me Additional comment: Ef 50%; Atrial fibrillation Moderate MR, Right atrial enlargement Assessment & Plan - Assessment and Plan (Free Text) Assessment: 77 year old man with acute CVA with dysarthria in the setting of atrial fibrillation. When cleared by neurology start anti coagulation. HTN continue permissive HTN for this chronic disorder Diabetes chronic and stable on actos, insulin sliding scale Atrial fibrillation as per he does have a history of taking coumadin but it was stopped many years ago for un certain reasons. We will revisit the topic after acute stroke has stabilized. This conversation can be performed as an outpatient. - Date & Time Date: 03/04/18 Time: 11:40
--- NOTE | 2018-03-04 12:00 | CP.PCM.PCO ---
Physician Communication Note - Physician Communication Note Physician Communication Note: if neuro cleared to start anticoagulation please start xeralto
--- NOTE | 2018-03-04 12:17 | CARD ---
APPROVED REPORT Date of service: 03/03/2018 EKG Measurement Heart [id number] <Conclusion> Atrial fibrillation Voltage criteria for left ventricular hypertrophy Inferior infarct, age undetermined Abnormal ECG
--- NOTE | 2018-03-04 13:08 | CARD ---
APPROVED REPORT Date of service: 03/03/2018 EXAM: Two-dimensional and M-mode echocardiogram with Doppler and color Doppler. INDICATION CVA/TIA RISK FACTORS Diabetes 2D DIMENSIONS IVSd0.8 (0.7-1.1cm)Aortic Root (2D)3.8 (2.0-3.7cm) LVDd5.2 (3.9-5.9cm)PWd1.0 (0.7-1.1cm) LA [id number] (18-58mL)LVDs3.1 (2.5-4.0cm) FS (%) 39.6 %LVEF (%)69.8 (>50%) IVC0.00 cm M-Mode DIMENSIONS Left Atrium (MM)4.84 (2.5-4.0cm)IVSd0.98 (0.7-1.1cm) Aortic Root3.20 (2.2-3.7cm)LVDd5.00 (4.0-5.6cm) Aortic Cusp Exc.1.91 (1.5-2.0cm)PWd0.94 (0.7-1.1cm) FS (%) 41 %LVDs2.97 (2.0-3.8cm) TAPSE16.79 cmLVEF (%)71 (>50%) Aortic Valve AI P 1/2 [id number] Mitral Valve MV E Zinqssgf372.8cm/sMV A Kconjpcd87.8cm/sE/A ratio1.9 TDI Lateral E' Peak V11.58cm/sMedial E' Peak V8.09cm/sE/Lateral E'10.4 E/Medial E'14.9 Tricuspid Valve TR Peak Nurlilay300by/sTR Peak Gr.[id number] LEFT VENTRICLE The left ventricle is normal size. There is normal left ventricular wall thickness. The left ventricular systolic function is normal. The left ventricular ejection fraction is within the normal range. There is normal LV segmental wall motion. Grade III restrictive diastolic dysfunction. RIGHT VENTRICLE The right ventricle is normal size. The right ventricular systolic function is normal. ATRIA The left atrium is moderately dilated. The right atrium is moderately dilated. AORTIC VALVE The aortic valve is normal in structure. There is mild aortic regurgitation. There is no aortic valvular stenosis. MITRAL VALVE The mitral valve is normal in structure. Mitral regurgitation is mild to moderate. TRICUSPID VALVE The tricuspid valve is normal in structure. There is moderate tricuspid regurgitation. Right ventricular systolic pressure is estimated at - 41 mmHg. There is mild pulmonary hypertension. PULMONIC VALVE The pulmonary valve is normal in structure. GREAT VESSELS The aortic root is normal in size. The IVC is normal in size and collapses >50% with inspiration. PERICARDIAL EFFUSION There is no pericardial effusion. <Conclusion> The left ventricular systolic function is normal. There is normal LV segmental wall motion. Grade III restrictive diastolic dysfunction. The right ventricular systolic function is normal. Moderate bi-atrial enlargement. Mild aortic regurgitation. Mild to moderate mitral regurgitation. There is moderate tricuspid regurgitation. Right ventricular systolic pressure is estimated at - 41 mmHg compatible with mild pulmonary hypertension. There is no pericardial effusion. CONTRAST STUDY WITH AGITATED SALINE: No evidence of inter- cavitary shunt.
--- NOTE | 2018-03-04 15:09 | MRI ---
Date of service: 03/03/2018 PROCEDURE: MRI BRAIN WITHOUT CONTRAST HISTORY: Bitemporal hemianopsia COMPARISON: Comparison made with prior CT scan of the brain 03/03/2018 TECHNIQUE: Multiplanar, multisequence MR images of the brain were obtained without intravenous contrast enhancement. FINDINGS: HEMORRHAGE: No acute parenchymal, subarachnoid nor extra-axial hemorrhage. DWI: Seen to better advantage is a acute left posterior cerebral artery territory posterior thalamus as well as the typical pole along the occipito parietal watershed zone.. BRAIN PARENCHYMA: Chronic infarcts in the left anterior superior frontal and right mid to superior posterior frontal regions again noted with surrounding subjacent subcortical and deeper white matter gliosis. Chronic appearing bilateral cerebellar infarcts. Minimal chronic periventricular white matter ischemic changes with suspected few scattered bilateral basal nuclei lacunar type infarcts Moderate generalized volume loss. Incidental note made of prominent appearing pituitary gland for this age group as well as bulbous appearance of the pituitary infundibulum. Rule out possible pituitary adenoma which has extended through the diaphragmatic sella.. Follow-up of pre and post-contrast MRI of the pituitary gland recommended for further evaluation. VENTRICLES: No obstructive hydrocephalus. CRANIUM: Unremarkable. ORBITS: Orbits and contents grossly unremarkable.. PARANASAL SINUSES/MASTOIDS: Clear VASCULAR SYSTEM: Visualized major vascular flow voids at skull base patent. OTHER FINDINGS: None. IMPRESSION: Acute left [employer] STATIONS territory infarct as described. Chronic bifrontal lobe infarcts. Minimal chronic periventricular white matter ischemic changes. Chronic appearing bilateral cerebellar infarcts. Minimal chronic periventricular white matter ischemic changes with suspected few scattered bilateral basal nuclei lacunar type infarcts Moderate generalized volume loss. Incidental note made of prominent appearing pituitary gland for this age group as well as bulbous appearance of the pituitary infundibulum. Rule out possible pituitary adenoma which has extended through the diaphragmatic sella.. Follow-up of pre and post-contrast MRI of the pituitary gland recommended for further evaluation. No acute intracranial hemorrhage
--- NOTE | 2018-03-04 15:18 | CP.PCM.PN ---
Subjective - Date & Time of Evaluation Date of Evaluation: 03/04/18 Time of Evaluation: 11:30 - Subjective Subjective: clinically same Objective - Vital Signs/Intake and Output Vital Signs (last 24 hours): Temp Pulse Resp BP Pulse Ox 98.8 F 76 20 141/82 95 03/04/18 07:00 03/04/18 08:00 03/04/18 07:00 03/04/18 07:00 03/04/18 07:00 Intake and Output: 03/04/18 03/04/18 06:59 18:59 Intake Total 1590 Output Total 300 Balance 1290 - Medications Medications: Current Medications Allopurinol (Zyloprim) 100 mg PO DAILY [facility] Last Admin: 03/04/18 10:50 Dose: 100 mg Aspirin (Aspirin Chewable) 81 mg PO DAILY [facility] Last Admin: 03/04/18 10:50 Dose: 81 mg Clopidogrel Bisulfate (Plavix) 75 mg PO DAILY [facility] Last Admin: 03/04/18 10:50 Dose: 75 mg Enoxaparin Sodium (Lovenox) 40 mg SC DAILY [facility] Last Admin: 03/04/18 10:50 Dose: 40 mg Famotidine (Pepcid) 20 mg PO DAILY [facility] Last Admin: 03/04/18 10:50 Dose: 20 mg Glipizide (Glucotrol Xl) 10 mg PO DAILY [facility] Last Admin: 03/04/18 10:50 Dose: 10 mg Insulin Aspart (Novolog) 0 unit SC [facility]; Protocol Last Admin: 03/04/18 11:55 Dose: 2 unit Losartan Potassium (Cozaar) 25 mg PO DAILY [facility] Last Admin: 03/04/18 10:50 Dose: 25 mg Pioglitazone HCl (Actos) 15 mg PO DAILY [facility] Last Admin: 03/04/18 10:49 Dose: 15 mg Rosuvastatin Calcium (Crestor) 10 mg PO [facility] Last Admin: 03/03/18 21:07 Dose: 10 mg - Labs Labs: 03/03/18 06:39 03/04/18 06:46 PT 12.2 SECONDS (9.7-12.2) 03/03/18 06:39 INR 1.1 03/03/18 06:39 APTT 33 SECONDS (21-34) 03/03/18 06:39 - Constitutional Appears: Well - Head Exam Head Exam: ATRAUMATIC, NORMAL INSPECTION, NORMOCEPHALIC - Eye Exam Eye Exam: EOMI, Normal appearance, PERRL Pupil Exam: NORMAL ACCOMODATION, PERRL - ENT Exam ENT Exam: Mucous Membranes Moist, Normal Exam - Neck Exam Neck Exam: Full ROM, Normal Inspection. absent: Lymphadenopathy - Respiratory Exam Respiratory Exam: Decreased Breath Sounds - Cardiovascular Exam Cardiovascular Exam: REGULAR RHYTHM, +S1, +S2 - GI/Abdominal Exam GI & Abdominal Exam: Soft - Rectal Exam Rectal Exam: Deferred
[2018-03-05] MEDS: (Novolog) Insulin Aspart, Recombinant 100 u/ml 10 ml vial SC SCH ×4 (09:08→22:02)
--- NOTE | 2018-03-05 10:33 | CP.PCM.PN ---
Subjective - Date & Time of Evaluation Date of Evaluation: 03/05/18 Time of Evaluation: 10:32 - Subjective Subjective: Events reviewed Objective - Vital Signs/Intake and Output Vital Signs (last 24 hours): Temp Pulse Resp BP Pulse Ox 98.1 F 76 20 172/86 H 96 03/05/18 08:00 03/05/18 08:00 03/05/18 08:00 03/05/18 08:00 03/05/18 08:00 Intake and Output: 03/05/18 03/05/18 06:59 18:59 Intake Total 50 Output Total 300 Balance -250 - Medications Medications: Current Medications Allopurinol (Zyloprim) 100 mg PO DAILY [facility] Last Admin: 03/04/18 10:50 Dose: 100 mg Aspirin (Aspirin Chewable) 81 mg PO DAILY [facility] Last Admin: 03/04/18 10:50 Dose: 81 mg Clopidogrel Bisulfate (Plavix) 75 mg PO DAILY [facility] Last Admin: 03/04/18 10:50 Dose: 75 mg Enoxaparin Sodium (Lovenox) 40 mg SC DAILY [facility] Last Admin: 03/04/18 10:50 Dose: 40 mg Famotidine (Pepcid) 20 mg PO DAILY [facility] Last Admin: 03/04/18 10:50 Dose: 20 mg Glipizide (Glucotrol Xl) 10 mg PO DAILY [facility] Last Admin: 03/04/18 10:50 Dose: 10 mg Insulin Aspart (Novolog) 0 unit SC [facility]; Protocol Last Admin: 03/05/18 09:08 Dose: 1 unit Losartan Potassium (Cozaar) 25 mg PO DAILY [facility] Last Admin: 03/04/18 10:50 Dose: 25 mg Pioglitazone HCl (Actos) 15 mg PO DAILY [facility] Last Admin: 03/04/18 10:49 Dose: 15 mg Rosuvastatin Calcium (Crestor) 10 mg PO [facility] Last Admin: 03/04/18 21:43 Dose: 10 mg - Labs Labs: 03/03/18 06:39 03/04/18 06:46 PT 12.2 SECONDS (9.7-12.2) 03/03/18 06:39 INR 1.1 03/03/18 06:39 APTT 33 SECONDS (21-34) 03/03/18 06:39 Assessment and Plan - Assessment and Plan (Free Text) Assessment: - EKG Data EKG Interpreted by: Myself (Atrial fibrillation) Rate: Normal - Imaging and Cardiology Chest x-ray Additional comment: No infiltrates or effusions 2D echo Status: Image reviewed by me Additional comment: Ef 50%; Atrial fibrillation Moderate MR, Right atrial enlargement Assessment & Plan - Assessment and Plan (Free Text) Assessment: 77 year old man with acute CVA with dysarthria in the setting of atrial fibrillation. When cleared by neurology start anti coagulation CT scan planned for Day 6 to surveil for hemorrhagic conversion HTN continue permissive HTN for this chronic disorder Diabetes chronic and stable on actos, insulin sliding scale Atrial fibrillation as per he does have a history of taking coumadin but it was stopped many years ago. We will revisit the topic after acute stroke has stabilized. This conversation can be performed as an outpatient.
[2018-03-05] MEDS: Enoxaparin 40 mg Syringe SC SCH (10:56)
[2018-03-05] MEDS: GlipiZIDE 10 mg SR Tab PO SCH (10:56)
--- NOTE | 2018-03-05 11:10 | PCM.EEG ---
Electroencephalogram Report - Electroencephalogram Report Procedure Date: 03/04/18 Medication: Losartan, Insulin, ASA, Plavix Interpretation: Technical Information: This was a 16-channel EEG, 1-channel EKG , performed using an Knimbus machine., electrodes were applied according to the 10/20 international placement system, impedances were less than 5 K Ohm. Start; 8;31 End; 8;54 Total; 23 min. Clinical Information: This EEG was performed on a 77 -year old patient with alter mental status EEG Detail: During resting wakefulness there was a symmetric posterior dominant rhythm at 7 Hz, 30-50 uV, which was reactive to eye opening and closing this was better developed on the right. Drowsiness was associated with fragmentation of the posterior dominant rhythm and with slow roving eye movements seen at 8;47 AM. Sleep was not seen. Throughout the recording, there was evidence of continuous left frontal/ temporal 3-6 Hz, 30-75 uV slowing. Hyperventilation was not performed. Photic stimulation was performed and there were no changes in the record. No seizures, not in status epilepticus. T Impression: This is an abnormal EEG record that demonstrate the presence of a mild non sp ecific diffuse disturbance of cortical activity, this is in keeping with a diffuse castrejon matter dysfunction. These findings do not support a specific etiology. The findings are also in keeping with a focal cortical abnormality involving the left hemisphere in keeping with a structural abnormality in the same area.
--- NOTE | 2018-03-05 18:55 | CP.PCM.PN ---
Subjective - Date & Time of Evaluation Date of Evaluation: 03/05/18 Time of Evaluation: 14:45 - Subjective Subjective: Mr. Cristobal was seen and examined today at bedside. His was present and had some questions that were answered to her satisfaction. The patient continues to be somnolent and often confused. I reviewed the EEG and there were no seizures. There were no acute events overnight. Objective - Vital Signs/Intake and Output Vital Signs (last 24 hours): Temp Pulse Resp BP Pulse Ox 98.7 F 66 20 171/78 H 95 03/05/18 15:00 03/05/18 15:00 03/05/18 15:00 03/05/18 15:00 03/05/18 15:00 Intake and Output: 03/05/18 03/05/18 06:59 18:59 Intake Total 50 Output Total 300 Balance -250 - Medications Medications: Current Medications Allopurinol (Zyloprim) 100 mg PO DAILY [facility] Last Admin: 03/05/18 10:56 Dose: 100 mg Aspirin (Aspirin Chewable) 81 mg PO DAILY [facility] Last Admin: 03/05/18 10:55 Dose: 81 mg Clopidogrel Bisulfate (Plavix) 75 mg PO DAILY [facility] Last Admin: 03/05/18 10:56 Dose: 75 mg Enoxaparin Sodium (Lovenox) 40 mg SC DAILY [facility] Last Admin: 03/05/18 10:56 Dose: 40 mg Famotidine (Pepcid) 20 mg PO DAILY [facility] Last Admin: 03/05/18 10:56 Dose: 20 mg Glipizide (Glucotrol Xl) 10 mg PO DAILY [facility] Last Admin: 03/05/18 10:56 Dose: 10 mg Insulin Aspart (Novolog) 0 unit SC [facility]; Protocol Last Admin: 03/05/18 12:58 Dose: 2 unit Losartan Potassium (Cozaar) 25 mg PO DAILY [facility] Last Admin: 03/05/18 10:55 Dose: 25 mg Pioglitazone HCl (Actos) 15 mg PO DAILY [facility] Last Admin: 03/05/18 10:55 Dose: 15 mg Rosuvastatin Calcium (Crestor) 10 mg PO HS [facility] Last Admin: 03/04/18 21:43 Dose: 10 mg - Labs Labs: 03/03/18 06:39 03/04/18 06:46 PT 12.2 SECONDS (9.7-12.2) 03/03/18 06:39 INR 1.1 03/03/18 06:39 APTT 33 SECONDS (21-34) 03/03/18 06:39 - Neurological Exam Additional comments: Neurologically unchanged compared with previous examination. Assessment and Plan (1) CVA (cerebral vascular accident) Assessment & Plan: Will start the patient on amantadine 100 mg BID to improve wakefulness and participation in acute rehab. Will continue following. A repeat CT head will be done in 2 days and if it is stable, will consider starting Eliquis 2.5 mg BID for secondary stroke prevention. Status: Acute
--- NOTE | 2018-03-05 20:59 | CP.PCM.PN ---
Subjective - Date & Time of Evaluation Date of Evaluation: 03/05/18 Time of Evaluation: 09:15 - Subjective Subjective: clinically same Objective - Vital Signs/Intake and Output Vital Signs (last 24 hours): Temp Pulse Resp BP Pulse Ox 98.7 F 66 20 171/78 H 95 03/05/18 15:00 03/05/18 15:00 03/05/18 15:00 03/05/18 15:00 03/05/18 15:00 - Medications Medications: Current Medications Allopurinol (Zyloprim) 100 mg PO DAILY [facility] Last Admin: 03/05/18 10:56 Dose: 100 mg Aspirin (Aspirin Chewable) 81 mg PO DAILY [facility] Last Admin: 03/05/18 10:55 Dose: 81 mg Clopidogrel Bisulfate (Plavix) 75 mg PO DAILY [facility] Last Admin: 03/05/18 10:56 Dose: 75 mg Enoxaparin Sodium (Lovenox) 40 mg SC DAILY [facility] Last Admin: 03/05/18 10:56 Dose: 40 mg Famotidine (Pepcid) 20 mg PO DAILY [facility] Last Admin: 03/05/18 10:56 Dose: 20 mg Glipizide (Glucotrol Xl) 10 mg PO DAILY [facility] Last Admin: 03/05/18 10:56 Dose: 10 mg Insulin Aspart (Novolog) [address] [facility]; Protocol Last Admin: 03/05/18 12:58 Dose: 2 unit Losartan Potassium (Cozaar) 25 mg PO DAILY [facility] Last Admin: 03/05/18 10:55 Dose: 25 mg Pioglitazone HCl (Actos) 15 mg PO DAILY [facility] Last Admin: 03/05/18 10:55 Dose: 15 mg Rosuvastatin Calcium (Crestor) 10 mg PO HS [facility] Last Admin: 03/04/18 21:43 Dose: 10 mg - Labs Labs: 03/03/18 06:39 03/04/18 06:46 PT 12.2 SECONDS (9.7-12.2) 03/03/18 06:39 INR 1.1 03/03/18 06:39 APTT 33 SECONDS (21-34) 03/03/18 06:39
[2018-03-06] MEDS: (Novolog) Insulin Aspart, Recombinant 100 u/ml 10 ml vial SC SCH ×4 (08:36→22:08)
[2018-03-06] MEDS: GlipiZIDE 10 mg SR Tab PO SCH (10:30)
[2018-03-06] MEDS: Enoxaparin 40 mg Syringe SC SCH (10:30)
[2018-03-06 13:58] LABS: BASO # 0.1 K/uL (0.0-0.2); BASO % 0.6 % (0.0-2.0); EOS % 0.1 % (0.0-4.0); HEMOGLOBIN 14.6 g/dL (12.0-18.0); LYMPH # 0.9 K/uL (1.0-4.3); LYMPH % 10.4 % (20.0-40.0); MEAN CORPUSCULAR HEMOGLOBIN 31.2 pg (27.0-31.0); MEAN CORPUSCULAR HGB CONC 35.5 g/dL (33.0-37.0); MEAN PLATELET VOLUME 7.9 fL (7.2-11.7); MONO # 0.9 K/uL (0.0-0.8); NEUT % 78.9 % (50.0-75.0); NRBC % 0.3 % (0.0-2.0); RBC 4.67 Mil/uL (4.40-5.90); RED CELL DISTRIBUTION WIDTH 13.9 % (11.5-14.5); WHITE BLOOD COUNT 8.8 K/uL (4.8-10.8)
[2018-03-06 13:59] LABS: MEAN CELL VOLUME 87.9 fL (80.0-94.0)
[2018-03-06 14:18] LABS: BLOOD UREA NITROGEN 27 mg/dL (9-20); CALCIUM 8.3 mg/dl (8.6-10.4); GFR NON-AFRICAN AMERICAN > 60
--- NOTE | 2018-03-06 15:13 | CP.PCM.PN ---
Subjective - Date & Time of Evaluation Date of Evaluation: 03/06/18 Time of Evaluation: 09:45 - Subjective Subjective: clinically same Objective - Vital Signs/Intake and Output Vital Signs (last 24 hours): Temp Pulse Resp BP Pulse Ox 99.8 F H 80 18 175/95 H 97 03/06/18 07:25 03/06/18 07:25 03/06/18 07:25 03/06/18 07:25 03/06/18 07:25 Intake and Output: 03/06/18 03/06/18 06:59 18:59 Intake Total 250 Balance 250 - Medications Medications: Current Medications Allopurinol (Zyloprim) 100 mg PO DAILY [facility] Last Admin: 03/06/18 10:29 Dose: 100 mg Aspirin (Aspirin Chewable) 81 mg PO DAILY [facility] Last Admin: 03/06/18 10:29 Dose: 81 mg Clopidogrel Bisulfate (Plavix) 75 mg PO DAILY [facility] Last Admin: 03/06/18 10:29 Dose: 75 mg Enoxaparin Sodium (Lovenox) 40 mg SC DAILY [facility] Last Admin: 03/06/18 10:30 Dose: 40 mg Famotidine (Pepcid) 20 mg PO DAILY [facility] Last Admin: 03/06/18 10:29 Dose: 20 mg Glipizide (Glucotrol Xl) 10 mg PO DAILY [facility] Last Admin: 03/06/18 10:30 Dose: 10 mg Insulin Aspart (Novolog) 0 unit SC [facility]; Protocol Last Admin: 03/06/18 11:51 Dose: 3 unit Losartan Potassium (Cozaar) 25 mg PO DAILY [facility] Last Admin: 03/06/18 10:29 Dose: 25 mg Pioglitazone HCl (Actos) 15 mg PO DAILY [facility] Last Admin: 03/06/18 10:31 Dose: 15 mg Rosuvastatin Calcium (Crestor) 10 mg PO HS [facility] Last Admin: 03/05/18 22:01 Dose: 10 mg - Labs Labs: 03/06/18 13:53 03/06/18 13:53 PT 12.2 SECONDS (9.7-12.2) 03/03/18 06:39 INR 1.1 03/03/18 06:39 APTT 33 SECONDS (21-34) 03/03/18 06:39 - Constitutional Appears: Well - Head Exam Head Exam: ATRAUMATIC, NORMAL INSPECTION, NORMOCEPHALIC - Eye Exam Eye Exam: EOMI, Normal appearance, PERRL Pupil Exam: NORMAL ACCOMODATION, PERRL - ENT Exam ENT Exam: Mucous Membranes Moist, Normal Exam - Neck Exam Neck Exam: Full ROM, Normal Inspection. absent: Lymphadenopathy - Respiratory Exam Respiratory Exam: Decreased Breath Sounds - Cardiovascular Exam Cardiovascular Exam: REGULAR RHYTHM, +S1, +S2 - GI/Abdominal Exam GI & Abdominal Exam: Soft, Diminished Bowel Sounds - Rectal Exam Rectal Exam: Deferred
[2018-03-06] MEDS ORDERED: Potassium Chloride 20 mEq/15 ml LIQ UD PO ONE (16:30)
--- NOTE | 2018-03-06 18:59 | CP.PCM.PN ---
Subjective - Date & Time of Evaluation Date of Evaluation: 03/06/18 Time of Evaluation: 14:00 - Subjective Subjective: Mr. Cristobal was seen and examined today at bedside. He continues to be relatively lethargic and will likely not be able to participate well with rehab. Amantadine may help. Will repeat non-contrast CT head tomorrow and if there is no hemorrhage, will start Eliquis 2.5 mg BID. Objective - Vital Signs/Intake and Output Vital Signs (last 24 hours): Temp Pulse Resp BP Pulse Ox 99.4 F 76 20 158/88 H 96 03/06/18 15:00 03/06/18 15:00 03/06/18 15:00 03/06/18 15:00 03/06/18 15:00 Intake and Output: 03/06/18 03/06/18 06:59 18:59 Intake Total 250 620 Output Total 580 Balance 250 40 - Medications Medications: Current Medications Allopurinol (Zyloprim) 100 mg PO DAILY [facility] Last Admin: 03/06/18 10:29 Dose: 100 mg Amantadine HCl (Amantadine 100 Mg Cap) 100 mg PO BID [facility] Aspirin (Aspirin Chewable) 81 mg PO DAILY [facility] Last Admin: 03/06/18 10:29 Dose: 81 mg Clopidogrel Bisulfate (Plavix) 75 mg PO DAILY [facility] Last Admin: 03/06/18 10:29 Dose: 75 mg Enoxaparin Sodium (Lovenox) 40 mg SC DAILY [facility] Last Admin: 03/06/18 10:30 Dose: 40 mg Famotidine (Pepcid) 20 mg PO DAILY [facility] Last Admin: 03/06/18 10:29 Dose: 20 mg Glipizide (Glucotrol Xl) 10 mg PO DAILY [facility] Last Admin: 03/06/18 10:30 Dose: 10 mg Insulin Aspart (Novolog) 0 unit SC [facility]; Protocol Last Admin: 03/06/18 16:55 Dose: Not Given Losartan Potassium (Cozaar) 25 mg PO DAILY [facility] Last Admin: 03/06/18 10:29 Dose: 25 mg Pioglitazone HCl (Actos) 15 mg PO DAILY [facility] Last Admin: 03/06/18 10:31 Dose: 15 mg Rosuvastatin Calcium (Crestor) 10 mg PO [facility] Last Admin: 03/05/18 22:01 Dose: 10 mg - Labs Labs: 03/06/18 13:53 03/06/18 13:53 PT 12.2 SECONDS (9.7-12.2) 03/03/18 06:39 INR 1.1 03/03/18 06:39 APTT 33 SECONDS (21-34) 03/03/18 06:39 Assessment and Plan (1) CVA (cerebral vascular accident) Status: Acute
--- NOTE | 2018-03-06 19:38 | CP.PCM.PN ---
Subjective - Date & Time of Evaluation Date of Evaluation: 03/06/18 Time of Evaluation: 19:38 - Subjective Subjective: Awake, alert, lethargic No CP Objective - Vital Signs/Intake and Output Vital Signs (last 24 hours): Temp Pulse Resp BP Pulse Ox 99.4 F 76 20 158/88 H 96 03/06/18 15:00 03/06/18 16:30 03/06/18 15:00 03/06/18 15:00 03/06/18 15:00 Intake and Output: 03/06/18 03/07/18 18:59 06:59 Intake Total 620 Output Total 580 Balance 40 - Medications Medications: Current Medications Allopurinol (Zyloprim) 100 mg PO DAILY [facility] Last Admin: 03/06/18 10:29 Dose: 100 mg Amantadine HCl (Amantadine 100 Mg Cap) 100 mg PO BID [facility] Aspirin (Aspirin Chewable) 81 mg PO DAILY [facility] Last Admin: 03/06/18 10:29 Dose: 81 mg Clopidogrel Bisulfate (Plavix) 75 mg PO DAILY [facility] Last Admin: 03/06/18 10:29 Dose: 75 mg Enoxaparin Sodium (Lovenox) 40 mg SC DAILY [facility] Last Admin: 03/06/18 10:30 Dose: 40 mg Famotidine (Pepcid) 20 mg PO DAILY [facility] Last Admin: 03/06/18 10:29 Dose: 20 mg Glipizide (Glucotrol Xl) 10 mg PO DAILY [facility] Last Admin: 03/06/18 10:30 Dose: 10 mg Insulin Aspart (Novolog) 0 unit SC [facility]; Protocol Last Admin: 03/06/18 16:55 Dose: Not Given Losartan Potassium (Cozaar) 25 mg PO DAILY [facility] Last Admin: 03/06/18 10:29 Dose: 25 mg Pioglitazone HCl (Actos) 15 mg PO DAILY [facility] Last Admin: 03/06/18 10:31 Dose: 15 mg Rosuvastatin Calcium (Crestor) 10 mg PO HS [facility] Last Admin: 03/05/18 22:01 Dose: 10 mg - Labs Labs: 03/06/18 13:53 03/06/18 13:53 PT 12.2 SECONDS (9.7-12.2) 03/03/18 06:39 INR 1.1 03/03/18 06:39 APTT 33 SECONDS (21-34) 03/03/18 06:39 - Constitutional Appears: No Acute Distress, Confused, Chronically Ill - Head Exam Head Exam: ATRAUMATIC, NORMAL INSPECTION, NORMOCEPHALIC - Eye Exam Eye Exam: EOMI, Normal appearance. absent: Scleral icterus - ENT Exam ENT Exam: Mucous Membranes Moist - Neck Exam Neck Exam: Full ROM, Normal Inspection - Respiratory Exam Respiratory Exam: Clear to Ausculation Bilateral, NORMAL BREATHING PATTERN - Cardiovascular Exam Cardiovascular Exam: Irregular Rhythm, +S1, +S2. absent: Murmur - GI/Abdominal Exam GI & Abdominal Exam: Soft, Normal Bowel Sounds. absent: Tenderness - Neurological Exam Neurological Exam: Alert, Awake, Motor Sensory Deficit - Skin Skin Exam: Warm Assessment and Plan - Assessment and Plan (Free Text) Assessment: 77 year old man with acute CVA with dysarthria in the setting of atrial fibrillation. When cleared by neurology start anti coagulation CT scan planned : eliquis 2.5 BID suggested HTN continue permissive HTN for this chronic disorder Diabetes chronic and stable on actos, insulin sliding scale Atrial fibrillation as per he does have a history of taking coumadin but it was stopped many years ago. We will revisit the topic after acute stroke has s tabilized. This conversation can be performed as an outpatient.
[2018-03-07 06:44] LABS: BASO # 0.1 K/uL (0.0-0.2); BASO % 0.6 % (0.0-2.0); EOS % 0.1 % (0.0-4.0); HEMOGLOBIN 14.9 g/dL (12.0-18.0); LYMPH # 1.1 K/uL (1.0-4.3); MEAN CELL VOLUME 87.4 fL (80.0-94.0); MEAN CORPUSCULAR HEMOGLOBIN 31.1 pg (27.0-31.0); MEAN CORPUSCULAR HGB CONC 35.6 g/dL (33.0-37.0); MONO % 11.2 % (0.0-10.0); NEUT # 6.6 K/uL (1.8-7.0); NEUT % 75.1 % (50.0-75.0); NRBC % 0.1 % (0.0-2.0); RBC 4.78 Mil/uL (4.40-5.90); RED CELL DISTRIBUTION WIDTH 13.7 % (11.5-14.5); WHITE BLOOD COUNT 8.8 K/uL (4.8-10.8)
[2018-03-07 07:03] LABS: BLOOD UREA NITROGEN 24 mg/dL (9-20); CALCIUM 8.4 mg/dl (8.6-10.4); GFR NON-AFRICAN AMERICAN 59
[2018-03-07] MEDS: (Novolog) Insulin Aspart, Recombinant 100 u/ml 10 ml vial SC SCH ×3 (07:39→16:57)
[2018-03-07 08:32] VITALS: TEMP 98.4
[2018-03-07] MEDS: Potassium Chloride 20 mEq ER Tab PO SCH ×2 (09:48→12:34)
[2018-03-07] MEDS: GlipiZIDE 10 mg SR Tab PO SCH (09:48)
[2018-03-07] MEDS: Enoxaparin 40 mg Syringe SC SCH (09:49)
--- NOTE | 2018-03-07 10:01 | CT ---
Date of service: 03/07/2018 PROCEDURE: CT HEAD WITHOUT CONTRAST. HISTORY: follow ischemic stroke COMPARISON: 03/03/2018. TECHNIQUE: Axial computed tomography images were obtained through the head/brain without intravenous contrast. Radiation dose: Total exam DLP = 1237.95 mGy-cm. This CT exam was performed using one or more of the following dose reduction techniques: Automated exposure control, adjustment of the mA and/or kV according to patient size, and/or use of iterative reconstruction technique. FINDINGS: There expansion of the left posterior cerebral artery infarct in evolution with moderate hemorrhagic conversion now identified with france limited intraparenchymal hemorrhage identified at the inferior mid left temporal lobe and multifocal petechial or contusion type intraparenchymal hemorrhage identified affecting multiple gyri at the remainder of the affected left temporal and occipital lobe segments. Mass effect distorts the left lateral ventricle with the atrium and posterior body effaced likely trapping the left restorationism horn though no significant enlarged left temporal horn is identified at this time. There is limited encroachment at the left cerebral peduncle with basilar cisterns otherwise adequately patent. There is a marginal rightward midline shift of only 2 mm appreciated at this time. Otherwise, a small chronic lobar infarction left frontal lobe is reiterated. Mild diffuse cerebral atrophy chronic microangiopathy are reiterated the posterior fossa contents stable in appearance. No acute right cerebral hemispheric findings at this time. VENTRICLES: No hydrocephalus. CALVARIUM: Unremarkable. PARANASAL SINUSES: Unremarkable as visualized. No significant inflammatory changes. MASTOID AIR CELLS: Unremarkable as visualized. No inflammatory changes. OTHER FINDINGS: None. IMPRESSION: 1. Complex hemorrhagic conversion of involving left [employer] infarct as discussed above with mass-effect now facing posterior body and atrium of the left lateral ventricle and affectively trapping the left temporal horn though no hydrocephalus appreciated at this time. Minimal rightward midline shift with left cerebral peduncle encroached and basilar cisterns otherwise widely patent. Follow-up CT recommended. 2. Small left frontal lobar infarct again identified as well as age related neuro degenerative findings. Findings discussed with Dr. Hernandez with written down and read back verification 03/07/2018 9:50 a.m..
[2018-03-07] MEDS ORDERED: Metoprolol Succinate 25 mg XL Tab PO SCH (12:00)
--- NOTE | 2018-03-07 15:17 | CP.PCM.PN ---
Subjective - Date & Time of Evaluation Date of Evaluation: 03/07/18 Time of Evaluation: 09:45 - Subjective Subjective: clinically same Objective - Vital Signs/Intake and Output Vital Signs (last 24 hours): Temp Pulse Resp BP Pulse Ox 98.4 F 81 18 182/101 H 97 03/07/18 07:10 03/07/18 14:23 03/07/18 07:10 03/07/18 14:23 03/07/18 07:10 Intake and Output: 03/07/18 03/07/18 06:59 18:59 Intake Total 400 Balance 400 - Medications Medications: Current Medications Allopurinol (Zyloprim) 100 mg PO DAILY [facility] Last Admin: 03/07/18 09:48 Dose: 100 mg Amantadine HCl (Amantadine 100 Mg Cap) 100 mg PO BID [facility] Last Admin: 03/07/18 09:48 Dose: 100 mg Aspirin (Aspirin Chewable) 81 mg PO DAILY [facility] Last Admin: 03/07/18 09:48 Dose: 81 mg Enoxaparin Sodium (Lovenox) 40 mg SC DAILY [facility] Last Admin: 03/07/18 09:49 Dose: 40 mg Famotidine (Pepcid) 20 mg PO DAILY [facility] Last Admin: 03/07/18 09:48 Dose: 20 mg Glipizide (Glucotrol Xl) 10 mg PO DAILY [facility] Last Admin: 03/07/18 09:48 Dose: 10 mg Hydrochlorothiazide (Microzide) 12.5 mg PO DAILY [facility] Last Admin: 03/07/18 12:34 Dose: 12.5 mg Insulin Aspart (Novolog) 0 unit SC [facility]; Protocol Last Admin: 03/07/18 11:46 Dose: Not Given Losartan Potassium (Cozaar) 25 mg PO DAILY [facility] Last Admin: 03/07/18 09:48 Dose: 25 mg Metoprolol Succinate (Toprol Xl) 25 mg PO DAILY [facility] Last Admin: 03/07/18 12:34 Dose: 25 mg Pioglitazone HCl (Actos) 15 mg PO DAILY [facility] Last Admin: 03/07/18 09:48 Dose: 15 mg Rosuvastatin Calcium (Crestor) 10 mg PO HS [facility] Last Admin: 03/06/18 22:09 Dose: 10 mg - Labs Labs: 03/07/18 06:35 03/07/18 06:35 PT 12.2 SECONDS (9.7-12.2) 03/03/18 06:39 INR 1.1 03/03/18 06:39 APTT 33 SECONDS (21-34) 03/03/18 06:39 - Constitutional Appears: Well - Head Exam Head Exam: ATRAUMATIC, NORMAL INSPECTION, NORMOCEPHALIC - Eye Exam Eye Exam: EOMI, Normal appearance, PERRL Pupil Exam: NORMAL ACCOMODATION, PERRL - ENT Exam ENT Exam: Mucous Membranes Moist, Normal Exam - Neck Exam Neck Exam: Full ROM, Normal Inspection. absent: Lymphadenopathy - Respiratory Exam Respiratory Exam: Decreased Breath Sounds - Cardiovascular Exam Cardiovascular Exam: REGULAR RHYTHM, +S1, +S2 - GI/Abdominal Exam GI & Abdominal Exam: Soft, Diminished Bowel Sounds - Rectal Exam Rectal Exam: Deferred
[2018-03-07 16:17] VITALS: PULSE 60; RESP 20; O2SAT 96
[2018-03-07 17:27] VITALS: BP 167/96
== END 2018-03-07 18:00 | DRG 66 ==
LOC: C.ER 06:24 → C.9E 08:02 → C.6T 08:47 → C.9E 09:11 → C.6T 09:29 → C.9E 09:42 → C.6T 13:45
PROVIDERS: ADMIT Internal Medicine Nephrology; ATTEND Internal Medicine Nephrology
DX: I63.9 Cerebral infarction, unspecified (principal); E11.9 Type 2 diabetes mellitus without complications; I48.0 Paroxysmal atrial fibrillation; E78.5 Hyperlipidemia, unspecified; I11.9 Hypertensive heart disease without heart failure; R47.1 Dysarthria and anarthria; H53.461 Homonymous bilateral field defects, right side; Z86.73 Personal history of transient ischemic attack (TIA), and cerebral infarction without residual deficits

== ENCOUNTER 2018-08-20 08:56 | Observation (INO) | payer MEDICARE | END 2018-08-22 14:25 | disposition home or self-care (01) | LOC: C.ER 08:56 → C.9E 13:11 → C.6T 14:01 | PROVIDERS: ADMIT Internal Medicine Nephrology | CPT/HCPCS: 36415; 70450; 70544; 70547; 70551; 71045; 80053; 80061; 81001; 82550; 82553; 82948; 83036; 84484; 85025; 85610; 85730; 93005; 97116; 97162; 97165; 97530; 99285; G0378; G8978; G8979; G8987; G8988; G8989 ==

== ENCOUNTER 2018-09-10 10:03 | Outpatient (CLI) | payer MEDICARE | END 2018-09-10 10:04 | disposition home or self-care (01) | LOC: C.EEG 10:03 | DX: G40.209 Localization-related (focal) (partial) symptomatic epilepsy and epileptic syndromes with complex partial seizures, not intractable, without status epilepticus (principal) ==